=== PATIENT | male | born 1950 | race Caucasian/White ===

== ENCOUNTER 2018-06-15 07:59 | Emergency (ER) | payer MEDICARE ==
--- NOTE | 2018-06-15 08:31 | EDM.PDOC ---
ED HPI GENERAL MEDICAL PROBLEM - General Chief Complaint: Drug or Alcohol Abuse Stated Complaint: [facility] Time Seen by Provider: 06/15/18 08:21 Source of Information: Reports: Patient, EMS, RN Notes Reviewed History Limitations: Reports: Intoxication - History of Present Illness INITIAL COMMENTS - FREE TEXT/NARRATIVE: 68-year-old gentleman presents to the emergency department via EMS services for evaluation, he admits to being on a 3 day zaragoza he has consumed 3 gallons of vodka over that period time states he's just been in his apartment consuming alcohol recently was paid on the third of this month he does not want any treatment denies any pain does not want to go to detox and does not want any help offered him breakfast as well he declined - Related Data Allergies Allergy/AdvReac Type Severity Reaction Status Date / Time No Known Allergies Allergy Verified 06/15/18 08:04 Home Meds: Home Meds Carvedilol 12.5 mg PO BID 06/15/18 [History] Lisinopril 5 mg PO DAILY 06/15/18 [History] Past Medical History Cardiovascular History: Reports: Hypertension Neurological History: Reports: Cerebral Aneurysms Psychiatric History: Reports: Addiction - Infectious Disease History Infectious Disease History: Reports: Hepatitis C Social & Family History - Tobacco Use Smoking Status *Q: Current Every Day Smoker Years of Tobacco use: 40 Packs/Tins Daily: 1 - Alcohol Use Days Per Week of Alcohol Use: 7 Number of Drinks Per Day: 7 Total Drinks Per Week: 49 - Recreational Drug Use Recreational Drug Use: No ED ROS GENERAL - Review of Systems Review Of Systems: See Below Constitutional: Reports: No Symptoms HEENT: Reports: No Symptoms Respiratory: Reports: No Symptoms Cardiovascular: Reports: No Symptoms GI/Abdominal: Reports: No Symptoms : Reports: No Symptoms Musculoskeletal: Reports: No Symptoms Skin: Reports: No Symptoms Neurological: Reports: No Symptoms ED EXAM, GENERAL - Physical Exam Exam: See Below Exam Limited By: Intoxication General Appearance: Alert, WD/WN, No Apparent Distress Eye Exam: Bilateral Eye: Normal Inspection Respiratory/Chest: No Respiratory Distress, Lungs Clear, Normal Breath Sounds, No Accessory Muscle Use Cardiovascular: Regular Rate, Rhythm, No Murmur GI/Abdominal: Soft, Non-Tender Course - Vital Signs Last Recorded V/S: Last Vital Signs Temp 97.2 F 06/15/18 08:01 Pulse 101 H 06/15/18 08:01 Resp 16 06/15/18 08:01 BP 133/64 06/15/18 08:01 Pulse Ox 93 L 06/15/18 08:01 Departure - Departure Time of Disposition: 08:30 Disposition: Home, Self-Care 01 Condition: Poor Clinical Impression: Alcoholism - Discharge Information Referrals: PCP,None [Primary Care Provider] - Additional Instructions: recommend stop drinking alcohol recommend follow-up shirlene for further evaluation, call return to the emergency department worsening of symptoms - Assessment/Plan Plan: Assessment Acuity = chronic Site and laterality = alcoholism Etiology = EtOH Manifestations = none Location of injury = Home Lab values = none Plan He has repeatedly declined any help or assistance, does not want alcohol treatment denies any suicidal ideation, wants to return to his home so he can continue consuming alcohol, therefore no treatment is provided or further evaluation This note was dictated using [employer] voice recognition software please call with any questions on syntax or grammar.
== END 2018-06-15 09:10 | disposition home or self-care (01) ==
LOC: JP.ED 07:59
DX: F10.229 Alcohol dependence with intoxication, unspecified (principal); I10 Essential (primary) hypertension; F17.210 Nicotine dependence, cigarettes, uncomplicated; Z79.899 Other long term (current) drug therapy
CPT/HCPCS: 99282